=== PATIENT | female | born 1935 | race Caucasian/White ===

== ENCOUNTER 2017-02-22 06:44 | Day surgery (SDC) | payer MEDICARE, MEDICAID ==
[~2017-02-22] VITALS: Ht 149.9 cm; Wt 63.0 kg
[2017-02-22] MEDS ORDERED: LORA1TAB PO (07:55)
[2017-02-22] MEDS ORDERED: ATOR10TA65 PO (07:55)
[2017-02-22] MEDS ORDERED: LORA0.5T PO (07:55)
[2017-02-22] MEDS ORDERED: BACL10TA PO (07:56)
[2017-02-22] MEDS ORDERED: LISI20TA11 PO (07:57)
[2017-02-22] MEDS ORDERED: AMLO5TAB4 PO (07:57)
[2017-02-22 07:58] VITALS: BP 138/69; PULSE 72; RESP 18
[2017-02-22] MEDS ORDERED: HYDR-906 PO (07:58)
[2017-02-22] MEDS ORDERED: ZOLP10TA5 PO (07:58)
[2017-02-22] MEDS ORDERED: CYCL-319 PO (07:59)
[2017-02-22 08:00] VITALS: Ht 149.9 cm; Wt 63.0 kg
[2017-02-22] MEDS ORDERED: CAPS42.510 TOP (08:01)
[2017-02-22] MEDS ORDERED: DICL100G37 TOP (08:01)
[2017-02-22] MEDS ORDERED: BUPIVACAINE 0.25% (MPF) 30 ML INJ ONE (08:47)
[2017-02-22] MEDS ORDERED: LIDOCAINE 1% (MPF) 30 ML INJ ONE (08:47)
--- NOTE | 2017-02-22 08:56 | HPN ---
Date/Time of Note Date/Time of Note DATE: 02/22/17 TIME: 08:56 Interval H&P Admission Note Pt. seen H&P reviewed: No system changes KEYANNA RESENDIZ MD Feb 22, 2017 08:56
[2017-02-22] MEDS ORDERED: ONDANSETRON 4 MG INJ IV PRN ×2 (09:00→10:00)
[2017-02-22] MEDS ORDERED: FENTAnyl 50 MCG/ML VIAL IV PRN ×3 (09:00)
[2017-02-22] MEDS ORDERED: MEPERIDINE 25 MG INJ IV PRN (09:00)
[2017-02-22] MEDS ORDERED: OXYCODONE/ACETAMINOPHEN (5/325) TAB PO PRN ×4 (09:00→10:00)
[2017-02-22] MEDS ORDERED: LABETALOL HCL 20MG INJ IV PRN (09:00)
[2017-02-22] MEDS ORDERED: EPHEDrine SULFATE 50 MG/5 ML SYG IV PRN (09:00)
[2017-02-22] MEDS ORDERED: hydrALAzine 20 MG INJ IV PRN (09:00)
[2017-02-22] MEDS ORDERED: HYDROmorphONE (0.2 MG/ML) 10ML SYG IV PRN ×3 (09:00)
[2017-02-22] MEDS ORDERED: LIDOCAINE 2% (SDV) 5 ML INJ ONE (09:04)
[2017-02-22] MEDS ORDERED: PROPOFOL 60 ML ONE (09:04)
[2017-02-22] MEDS ORDERED: FENTAnyl 50 MCG/ML VIAL ONE (09:05)
[2017-02-22] MEDS ORDERED: CEFAZOLIN 1 GM INJ ONE (09:21)
[2017-02-22] MEDS ORDERED: BUPIVACAINE 0.25% (MPF) 30 ML INJ INJ ONE (09:36)
[2017-02-22 09:55] VITALS: BP 118/65; PULSE 69; RESP 18
[2017-02-22] MEDS ORDERED: morphine 2 MG INJ IV PRN (10:00)
--- NOTE | 2017-02-22 10:37 | OPR ---
DATE OF OPERATION: 02/22/2017 PREOPERATIVE DIAGNOSIS: 5 cm subcutaneous lipoma, right lower back. POSTOPERATIVE DIAGNOSIS: 5 cm subcutaneous lipoma, right lower back. Pathology pending. PROCEDURE: Excision. SURGEON: Keyanna Burt MD ANESTHESIA: General. DESCRIPTION OF PROCEDURE: After satisfactory general anesthesia was achieved, the patient was place d in the right lateral decubitus position and the back was prepped and draped. A 5 cm transverse sk in incision was made directly over the mass, which was marked with the patient in preop holding. It was carried down to subcutaneous tissues. There was an amorphous multilobulated subcutaneous lipom a. This was excised in piecemeal fashion using blunt and electrocautery dissection, such that it wa s removed in its entirety. Hemostasis was made total with electrocautery. The wound was infiltrate d with 20 mL of 0.25% plain Marcaine. Subcutaneous was closed with interrupted 3-0 Vicryl suture an d skin closed with running 3-0 subcuticular Vicryl. Operative blood loss less than 10 mL. Sponge a nd needle counts reported as correct x2. The patient tolerated the procedure well and without incid ent or complication. Dictated By: KEYANNA RASMUSSEN/YULIANA Conf#: [id number] DID#: [id number] CC: PEYMAN HUTSON MD;*End*
[2017-02-22 11:31] VITALS: BP 140/56; PULSE 59; RESP 16
== END 2017-02-22 11:36 | disposition home or self-care (01) ==
LOC: SDS 06:44
PROVIDERS: ATTEND Surgery
DX: D17.1 Benign lipomatous neoplasm of skin and subcutaneous tissue of trunk (principal); I10 Essential (primary) hypertension
CPT/HCPCS: 11406; 88307; J0690; J3010

== ENCOUNTER 2019-08-05 10:44 | Day surgery (SDC) | payer MEDICARE, MEDICAID ==
[2019-08-05] VITALS (16 sets, daily range): BP systolic 117–164; BP diastolic 56–95; PULSE 76–98; RESP 10–24; Ht 149.9 cm; Wt 64.0 kg
[~2019-08-05] VITALS: Ht 149.9 cm; Wt 64.0 kg
[~2019-08-05 10:44] MED LIST: AMLO5TAB4 PO; ATOR10TA65 PO; BACL10TA PO; CAPS42.513 TOP; CEFAZOLIN 1 GM/50 ML (PMX) 50 ML IVPB SCH; CYCL10TA7 PO; DICL100G37 TOP; GABA300C16 PO; HYDR-3601 PO; HYDR-3980 PO; HYDR-4011 PO; LISI-471 PO; LISI10TA2 PO; LORA0.5T PO; LORA1TAB PO; ZOLP10TA5 PO
[2019-08-05] MEDS ORDERED: DESFLURANE 15 MIN ONE (12:00)
[2019-08-05] MEDS ORDERED: CEFAZOLIN 1 GM INJ ONE (12:26)
[2019-08-05] MEDS ORDERED: GLYCOPYRROLATE 0.4 MG INJ ONE (12:26)
[2019-08-05] MEDS ORDERED: PROPOFOL 20 ML ONE (12:26)
[2019-08-05] MEDS ORDERED: MIDAZOLAM 1 MG/ML 2 ML INJ ONE (12:26)
[2019-08-05] MEDS ORDERED: NEOSTIGMINE 3 MG/3 ML SYRINGE ONE (12:26)
[2019-08-05] MEDS ORDERED: ROCURONIUM 50 MG INJ ONE (12:26)
[2019-08-05] MEDS ORDERED: DEXAMETHASONE 4 MG/ML 5 ML INJ ONE (12:26)
[2019-08-05] MEDS ORDERED: ONDANSETRON 4 MG INJ ONE (12:26)
[2019-08-05] MEDS ORDERED: FENTAnyl 50 MCG/ML VIAL ONE ×2 (12:26→13:42)
[2019-08-05] MEDS ORDERED: BUPIVACAINE 0.5% (SDV) 30 ML INJ ONE (12:47)
[2019-08-05] MEDS ORDERED: METHYLPREDNISOLONE ACET 80 MG/ML 1 ML ONE (12:47)
[2019-08-05] MEDS ORDERED: BUPIVACAINE 0.5% 30 ML VIAL INJ ONE (13:15)
[2019-08-05] MEDS ORDERED: METHYLPREDNISOLONE ACET 80 MG/ML 1 ML INJ ONE (13:15)
[2019-08-05] MEDS ORDERED: MEPERIDINE 25 MG INJ IV PRN (14:00)
[2019-08-05] MEDS ORDERED: FENTAnyl 50 MCG/ML VIAL IV PRN (14:00)
[2019-08-05] MEDS ORDERED: OXYCODONE/ACETAMINOPHEN (5/325) TAB PO PRN ×2 (14:00)
[2019-08-05] MEDS ORDERED: HYDROmorphONE 1 MG/5 ML IV SYRINGE IV PRN ×3 (14:00)
[2019-08-05] MEDS: FENTAnyl 50 MCG/ML VIAL IV PRN ×3 (14:00→14:47)
[2019-08-05] MEDS ORDERED: ONDANSETRON 4 MG INJ IV PRN (14:00)
== END 2019-08-05 16:07 | disposition home or self-care (01) ==
LOC: SDS 10:44
PROVIDERS: ATTEND Specialist
DX: S83.242A Other tear of medial meniscus, current injury, left knee, initial encounter (principal); S83.282A Other tear of lateral meniscus, current injury, left knee, initial encounter; M65.9 Synovitis and tenosynovitis, unspecified; M94.262 Chondromalacia, left knee; I10 Essential (primary) hypertension; X58.XXXA Exposure to other specified factors, initial encounter
CPT/HCPCS: 29880; J0690; J1040; J1100; J1170; J2175; J2250; J2405; J2710; J3010